=== PATIENT | female | born 1995 | race Caucasian/White ===

== ENCOUNTER 2016-07-03 15:34 | Emergency (ER) | payer OTHER ==
[2016-07-03 15:39] VITALS: BP 120/79; PULSE 89; RESP 20; TEMP 97.3; O2SAT 97
--- NOTE | 2016-07-03 16:20 | C.PDOC ---
History Of Present Illness 21-year-old female, presents to the emergency department with complaints of laceration to left middle finger. Patient states she sustained a laceration to the third digit of left hand while using lead blender at work, [employer]. Denies numbness/weakness. Time Seen by Provider: 07/03/16 15:42 Chief Complaint (Nursing): Abnormal Skin Integrity History Per: Patient History/Exam Limitations: no limitations Onset/Duration Of Symptoms: Mins Past Medical History Reviewed: Historical Data, Nursing Documentation, Vital Signs Vital Signs: Last Vital Signs Temp 97.3 F L 07/03/16 15:37 Pulse 89 07/03/16 15:37 Resp 20 07/03/16 16:36 BP 120/79 07/03/16 15:37 Pulse Ox 97 07/03/16 20:11 - Medical History PMH: No Chronic Diseases Family History: States: No Known Family Hx - Social History Hx Alcohol Use: No Hx Substance Use: No Review Of Systems Except As Marked, All Systems Reviewed And Found Negative. Respiratory: Negative for: Shortness of Breath Gastrointestinal: Negative for: Nausea, Vomiting Skin: Positive for: Other (LACERATION TO LEFT SECOND DIGIT OF UPPER EXTREMITY) Neurological: Negative for: Weakness, Numbness Physical Exam - Physical Exam Appears: Non-toxic, No Acute Distress Skin: Warm, Dry, No Rash Head: Atraumatic, Normacephalic Eye(s): bilateral: Normal Inspection Neck: Normal ROM Chest: Symmetrical Extremity: Normal ROM, Capillary Refill (<2 SECONDS), Other (1cm superficial laceration to the left 3rd fingertip, no active bleeding and proximal 1cm abrasion) Neurological/Psych: Oriented x3, Normal Speech ED Course And Treatment O2 Sat by Pulse Oximetry: 97 Laceration - Laceration Repair left 3rd digit Wound Length (In cm): 1 Description Of Wound: Linear, Clean Wound Cleansed With: Betadine, Sterile Saline Wound Examination: Irrigated With Saline, No FB With Wound Exploration, No Tendon Injury With Wound Exploration Wound Closure: Skin Glue (Dermabond) Wound Complexity: Simple Medical Decision Making Medical Decision Making: Wound irrigated and cleansed with betadyne and sterile saline. Patient was complaining of pain and extremely nervous. Tylenol and Tetanus was ordered. I discussed with patient the plan for suture repair, likely need two sutures, however the patient is refusing. She states she is afraid and does not want sutures. Plan is to apply topical skin adhesive Dermabond . Explain to patient to keep wound dry and not apply any ointment or products as it can dissolve the glue Disposition - Disposition Disposition: HOME/ ROUTINE Disposition Time: 16:20 Condition: GOOD Additional Instructions: Keep wound clean and dry Skin glue was used to close your wound, do not apply ointment to area as it may dissolve glue. Glue patch will gradually fall off in few days. Instructions: Skin Adhesive Care (ED) - POA Present On Arrival: None - Clinical Impression Clinical Impression: Finger laceration - Scribe Statement The provider has reviewed the documentation as recorded by the Scribjuan Gonzalez All medical record entries made by the Lashandaibe were at my direction and personally dictated by me. I have reviewed the chart and agree that the record accurately reflects my personal performance of the history, physical exam, medical decision making, and the department course for this patient. I have also personally directed, reviewed, and agree with the discharge instructions and disposition.
== END 2016-07-03 16:36 | disposition home or self-care (01) ==
LOC: C.ER 15:34
DX: S61.213A Laceration without foreign body of left middle finger without damage to nail, initial encounter (principal); W45.8XXA Other foreign body or object entering through skin, initial encounter; Y93.89 Activity, other specified; Y92.89 Other specified places as the place of occurrence of the external cause

== ENCOUNTER 2016-07-03 18:59 | Emergency (ER) | payer OTHER ==
[2016-07-03 19:19] VITALS: BP 129/85; PULSE 78; RESP 18; TEMP 98.3; O2SAT 99
--- NOTE | 2016-07-03 20:02 | C.PDOC ---
History Of Present Illness Patient is a 21 year old female who was seen and treated earlier today in the ER with a finger laceration. Patient states she arrived home and saw she was bleeding through the dressing, she now returns to the ER for a reevaluation. Denies any other complaints at this time. Time Seen by Provider: 07/03/16 19:38 Chief Complaint (Nursing): Abnormal Skin Integrity History Per: Patient History/Exam Limitations: no limitations Onset/Duration Of Symptoms: Hrs Current Symptoms Are (Timing): Still Present Location Of Injury: Left: Hand (finger laceration) Quality Of Symptoms: Other (Bleeding) Recent travel outside of the [place]: No Past Medical History Reviewed: Historical Data, Nursing Documentation, Vital Signs Vital Signs: Last Vital Signs Temp 98.3 F 07/03/16 19:16 Pulse 78 07/03/16 19:16 Resp 18 07/03/16 19:16 BP 129/85 07/03/16 19:16 Pulse Ox 99 07/03/16 22:53 - Medical History PMH: No Chronic Diseases Surgical History: No Surg Hx Family History: States: Unknown Family Hx - Social History Hx Alcohol Use: No Hx Substance Use: No Review Of Systems Constitutional: Negative for: Fever, Chills Musculoskeletal: Positive for: Hand Pain (Left, Finger laceration) Physical Exam - Physical Exam Appears: Well, Non-toxic Skin: Normal Color, Warm, Dry Head: Atraumatic, Normacephalic Eye(s): bilateral: Normal Inspection Neck: Normal ROM Extremity: Other (Left 3rd finger with no active bleeding, dermabond intact) Neurological/Psych: Oriented x3, Normal Speech ED Course And Treatment O2 Sat by Pulse Oximetry: 99 (Room air) Pulse Ox Interpretation: Normal Medical Decision Making Medical Decision Makin21 year old female with finger laceration complained of bleeding. No active bleeding in ED. Dressing applied. Disposition Counseled Patient/Family Regarding: Need For Followup - Disposition Referrals: Non [facility] Provider, [Primary Care Provider] - Disposition: HOME/ ROUTINE Disposition Time: 20:01 Condition: STABLE Instructions: Skin Adhesive Care (ED) Forms: Work Excuse - POA Present On Arrival: None - Clinical Impression Clinical Impression: Visit for wound check
== END 2016-07-03 20:12 | disposition home or self-care (01) ==
LOC: C.ER 18:59 → SUPCPDRO 18:59 → C.ER 20:12
DX: Z48.00 Encounter for change or removal of nonsurgical wound dressing (principal)

== ENCOUNTER 2017-06-29 23:55 | Inpatient (IN) | payer MEDICAID, OTHER ==
--- NOTE | 2017-06-30 03:47 | OBHP ---
Datetime: 06/30/2017 00:50 IP Adm Impression: Term, intrauterine ; No Active Labor; Intact Membranes IP Admit Plan: Observation/Evaluation Admit Comment, IP Provider: 22 y.o. , LMP 09/26/16, MEENU 07/03/17, EGA 39w 4d, confirmed by sonelvi cerda t 18 weeks, reports mild abdominal cramps onset 2130 hours 06/29, pain scale 4/10. Patient was in E.D . with her who has been admitted with acute appendicitis for appendectomy in the AM. (+) AFM ; denies LOF, VB. 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 Denies h/o STIs. abnormal Pap, ovarian cysts, fibroids PMH: denies PSH: denies NKDA Meds: PNV Soc Hx. denies tobacco, illicit drug or EtOH use. x 1 yr. Unemployed Fam Hx; Mother alive 46 y.o. - DM, HTN. Father alive 56 y.o. - no med issues. no known fam h/o can cer P.E.: as above. Mildly obese, in NAD. awake, alert, orineted to time, person and place. Pleasant a nd cooperative Assessment: 22 y.o. P0, 39w 4d, latent phase of labor. GBS (-). Category [address] able. Plan: 1) Ambulate x 2 hours (in E.D.) 2) Re-examine Addendum: 06/30/17 0338 hours Patient returns after ambulating: reports not feeling any contractions. (+) AFM. Cervical exam: New Point: every 5-6 minutes Assessment: 22 y.o. P0, 39w 5d, earlylabor. Category 1 tracing. GBS (-). Admit for delivery. Clini toyn stable. Plan: 1) Admit 2) NPO 3) Admission Labs 4) Continuous EFM 5) Pitocin 6) Anticipate vaginal delivery Pelvic Type - PN: Adequate Extremities - PN: Normal Abdomen - PN: Normal Back - PN: Normal Breast - PN: Normal Lungs - PN: Normal Heart - PN: Normal Thyroid - PN: Not Done Neurologic - PN: Normal HEENT - PN: Normal General - PN: Normal Presentation-Admit: Vertex FHR - Baseline A Provider: 140 Contraction Comments Provider: 5-6 Comments, ACOG Physical Exam: Abdomen: Gravid. Soft. Non tender All other systems reviewed and are negative Gestation - Est Wks by US: 39w 4d IP Hx Assessment: The History has been Reviewed and is Current EGA AdmitDate IP: 39.4 Vital Signs Provider: Reviewed IP Indication for Induction: Not Applicable IP Chief Complaint: Uterine contractions NICHD Variability Prov Fetus A: Moderate 6-25bpm NICHD Accel Fetus A IP Provider: 15X15 FHR Category Provider Fetus A: Category I NICHD Decel Fetus A IP Provider: None Dilatation, Provider: 3-4 Effacement, Provider: 40 Station, Provider: -3 Genitourinary Exam: Normal DTRs - PN: Normal
[2017-06-30] MEDS ORDERED: Oxytocin 30 UNIT 30 UNITS/500 ML BAG IV PRN (03:50)
[2017-06-30] MEDS: Lactated Ringer's 1,000 ML IV SCH ×2 (04:00→05:00)
[2017-06-30] MEDS ORDERED: Lactated Ringer's 1,000 ML IV SCH (04:00)
[2017-06-30 04:41] LABS: BASO % 0.4 % (0.0-2.0); EOS # 0.1 K/uL (0.0-0.7); EOS % 0.6 % (0.0-4.0); LYMPH # 2.1 K/uL (1.0-4.3); LYMPH % 17.7 % (20.0-40.0); MEAN CELL VOLUME 81.6 fL (81.0-99.0); MEAN CORPUSCULAR HEMOGLOBIN 28.3 pg (27.0-31.0); MEAN CORPUSCULAR HGB CONC 34.7 g/dL (33.0-37.0); MEAN PLATELET VOLUME 9.2 fL (7.2-11.7); MONO # 0.5 K/uL (0.0-0.8); MONO % 4.4 % (0.0-10.0); NEUT # 9.3 K/uL (1.8-7.0); NEUT % 76.9 % (50.0-75.0); NRBC % 0.1 % (0.0-2.0); RBC 4.6 Mil/uL (3.80-5.20); RED CELL DISTRIBUTION WIDTH 13.8 % (11.5-14.5); WHITE BLOOD COUNT 12.1 K/uL (4.8-10.8)
[2017-06-30 04:43] LABS: SQUAMOUS EPITHIAL 1 /hpf (0-5); URINE BACTERIA RARE (<OCC); URINE BILIRUBIN NEGATIVE (NEGATIVE); URINE CLARITY Clear (Clear); URINE COLOR Yellow (YELLOW); URINE GLUCOSE (UA) NORMAL (Normal); URINE LEUKOCYTE ESTERASE NEG Leu/uL (Negative); URINE PROTEIN NEGATIVE (NEGATIVE); URINE UROBILINOGEN NORMAL mg/dL (0.2-1.0)
[2017-06-30 04:51] LABS: URINE BLOOD TRACE (NEGATIVE)
[2017-06-30 05:08] LABS: ALB/GLOB RATIO 1.1 (1.0-2.1); ALBUMIN 3.9 g/dL (3.5-5.0); ALT/SGPT 23 U/L (9-52); AST/SGOT 33 U/L (14-36); BLOOD UREA NITROGEN 8 mg/dL (7-17); CALCIUM 9.2 mg/dl (8.6-10.4); GFR AFRICAN-AMERICAN > 60; GFR NON-AFRICAN AMERICAN > 60
[2017-06-30] MEDS ORDERED: Oxytocin 30 UNIT 30 UNITS/500 ML BAG IV ONE (05:15)
[2017-06-30] MEDS ORDERED: Fentanyl/Bupivacaine HCl 250 ML EPI ONE (10:47)
[2017-06-30] MEDS ORDERED: Bupivacaine HCl 0.25% PF (30 ml) Inj ONE (10:47)
[2017-06-30] MEDS ORDERED: cefOXitin IV 2 gm in Dextrose 2 GM/50 ML BAG IVPB ONE (12:42)
[2017-06-30] MEDS ORDERED: Sodium Citrate/Citric Acid 15 ml Sol PO ONE (12:43)
[2017-06-30] MEDS ORDERED: cefOXitin IV 2 gm in Saline 2 GM/50 ML BAG IVPB ONE (12:46)
[2017-06-30] MEDS ORDERED: Morphine 1 mg/ml preservative-free Inj(Duramorph) ONE (13:20)
[2017-06-30] MEDS ORDERED: Oxytocin 10 Units/ml Inj ONE (13:26)
--- NOTE | 2017-06-30 17:05 | OBDS ---
DELIVERY PERSONNEL Delivery Doctor: Lasha Escobar MD Scrub Nurse: Maia Kelley Diesel Truck Driver: Myrtle Pizano RN Anesthesiologist: beth MATERNAL INFORMATION Delivery Anesthesia: Epidural Medications in Delivery: pitocin 20 Estimated Blood Loss (ml): 900 Placenta Cultured: Yes Maternal Complications: None Provider Comments: baby jw in dop. 9/9 peds present LABOR SUMMARY EDC: 07/03/2017 00:00 No. Babies in Womb: 1 Attempted: No Labor Anesthesia: Epidural LABOR INFORMATION Onset of Labor: 06/29/2017 21:00 Oxytocin: Augmentation Group B Beta Strep: Negative Antibiotics # of Doses: 1 Antibiotics Time of Last Dose: 1249 MEMBRANES Membranes Rupture Method: Artificial Rupture of Membranes: 06/30/2017 12:42 Length of Rupture (hrs): 0.63 Amniotic Fluid Color: Heavy Meconium Amniotic Fluid Amount: Moderate Amniotic Fluid Odor: Normal STAGES OF LABOR Stage 3 hrs: 0 Stage 3 min: 3 Total Time in Labor hrs: 16 Total Time in Labor min: 23 VAGINAL DELIVERY Episiotomy: None Laceration Extension: N/A Laceration Type: None CSECTION DELIVERY Primary Indication: Secondary Arrest of Dilatation Secondary Indication: heavy meconum CSection Urgency: Emergency CSection Incidence: Primary Labor: Labor Elective: Nonelective CSection Incision: Lower Uterine Transverse BABY A INFORMATION Delivery Date/Time: 06/30/2017 13:20 Method of Delivery: Born in Route : No : N/A Forceps: N/A Vacuum Extraction: N/A Shoulder Dystocia : Yes SHOULDER DYSTOCIA BABY A Infant Delivery Date/Time: 06/30/2017 13:20 PRESENTATION/POSITION BABY A Presentation: Cephalic Cephalic Presentation: Vertex Vertex Position: Right Occipital Anterior Breech Presentation: N/A PLACENTA INFORMATION BABY A Placenta Delivery Time : 06/30/2017 13:23 Placenta Method of Delivery: Manual Removal Placenta Status: Delivered SCORES BABY A Heart Rate 1 min: >100 bpm Resp Effort 1 min: Good Cry Reflex Irritability 1 min: Cough or Sneeze or Pulls Away Muscle Tone 1 min: Active Motion Color 1 min: Body [place], Extremities Blue Resuscitation Effort 1 min: Tactile Stimulation SCORE 1 MIN: 9 Heart Rate 5 min: >100 bpm Resp Effort 5 min: Good Cry Reflex Irritability 5 min: Cough or Sneeze or Pulls Away Muscle Tone 5 min: Active Motion Color 5 min: Body [place], Extremities Blue SCORE 5 MIN: 9 INFANT INFORMATION BABY A Gestational Age at Delivery: 39.0 Gestational Status: Term Infant Outcome : Liveborn Condition : Stable Sex: Male IDENTIFICATION/MEDS BABY A ID Band Number: [id number] ID Band Location: Left Leg; Left Arm Sensor Applied: Yes Sensor Number: [id number] Sensor Location : Cord Clamp WEIGHT/LENGTH BABY A Infant Birthweight (gms): 3860 Infant Weight (lb): 8 Weight (oz): 8 Infant Length Inches: 20.00 Infant Length cms: 50.8 CORD INFORMATION BABY A No. Cord Vessels: 3 Nuchal Cord : N/A Cord Blood Taken: Yes Infant Suction: Mouth; Nose ASSESSMENT BABY A Infant Complications: None Physical Findings at Delivery: Within Normal Limits Respirations: Appears Normal Media Intern/ALS Called : No Infant Care By: DR IBARRA Transferred To: Remains with Mother
[2017-06-30] MEDS: Simethicone 80 mg Chewtab PO SCH (22:41)
[2017-07-01 08:30] LABS: MEAN CELL VOLUME 82.8 fL (81.0-99.0); MEAN CORPUSCULAR HEMOGLOBIN 28.3 pg (27.0-31.0); MEAN CORPUSCULAR HGB CONC 34.2 g/dL (33.0-37.0); MEAN PLATELET VOLUME 9.4 fL (7.2-11.7); RBC 3.67 Mil/uL (3.80-5.20); RED CELL DISTRIBUTION WIDTH 13.8 % (11.5-14.5); WHITE BLOOD COUNT 13.4 K/uL (4.8-10.8)
[2017-07-01 08:33] LABS: HEMOGLOBIN 10.4 g/dL (11.0-16.0)
[2017-07-01] MEDS: Simethicone 80 mg Chewtab PO SCH ×3 (09:40→17:56)
[2017-07-01] MEDS: Oxycodone/Acetaminophen 5/325 mg Tab PO PRN ×2 (12:43→18:34)
[2017-07-01] MEDS ORDERED: Bisacodyl 5mg EC Tab PO ONE (12:44)
--- NOTE | 2017-07-01 22:00 | OBPPN ---
Datetime: 07/01/2017 21:56 PP Nausea Prov: Denies PP Flatus Prov: Yes PP BM Prov: Yes PP Breasts Prov: Normal PP Heart Prov: Normal PP Lungs Prov: Normal PP Abdomen/Uterus Prov: Normal PP Lochia Prov: Normal PP Vulva/Perineum Prov: Normal PP CVA Tenderness Prov: Normal PP Extremities Prov: Normal PP C/S Incision Prov: Normal PP Progress Prov: Normal PP Impression Prov: Normal progression PP Plan Prov: Continue present management PP Progress Note Prov: PPD#1 1) Vitals stable 2) encouraged ambulation 3) Routine PP care. IP PP Procedures: None Vital Signs Provider PP: Reviewed
[2017-07-02] MEDS: Oxycodone/Acetaminophen 5/325 mg Tab PO PRN ×4 (06:19→21:41)
[2017-07-02] MEDS: Simethicone 80 mg Chewtab PO SCH ×4 (10:15→21:43)
--- NOTE | 2017-07-02 12:52 | OBPPN ---
Datetime: 07/02/2017 12:38 PP Pain Prov: Within normal limits PP Nausea Prov: Denies PP Flatus Prov: Yes PP BM Prov: No PP Breasts Prov: Normal PP Heart Prov: Normal PP Lungs Prov: Normal PP Abdomen/Uterus Prov: Normal PP Lochia Prov: Normal PP Vulva/Perineum Prov: Normal PP CVA Tenderness Prov: Normal PP Extremities Prov: Normal PP Comments Phys Exam Prov: ABD; Soft, NT, Incision clean and clear, Kay Intact. Uterus firm EXT: No calf tenderness PP Impression Prov: Normal progression PP Plan Prov: Continue present management PP Progress Note Prov: POD #2 pt doing well. No complaints today F/U CBC for today- Already ordered Plan for DC tomorrow. IP PP Procedures: None Vital Signs Provider PP: Reviewed; Within Normal Limits
[2017-07-02 14:09] LABS: BASO % 0.3 % (0.0-2.0); EOS # 0.2 K/uL (0.0-0.7); EOS % 1.9 % (0.0-4.0); HEMOGLOBIN 9.8 g/dL (11.0-16.0); LYMPH # 1.7 K/uL (1.0-4.3); LYMPH % 16.6 % (20.0-40.0); MEAN CELL VOLUME 83.1 fL (81.0-99.0); MEAN CORPUSCULAR HEMOGLOBIN 28.6 pg (27.0-31.0); MEAN CORPUSCULAR HGB CONC 34.5 g/dL (33.0-37.0); MEAN PLATELET VOLUME 8.8 fL (7.2-11.7); MONO # 0.5 K/uL (0.0-0.8); MONO % 5.1 % (0.0-10.0); NEUT # 7.6 K/uL (1.8-7.0); NEUT % 76.1 % (50.0-75.0); RBC 3.42 Mil/uL (3.80-5.20); RED CELL DISTRIBUTION WIDTH 13.8 % (11.5-14.5)
[2017-07-03] MEDS: Oxycodone/Acetaminophen 5/325 mg Tab PO PRN ×2 (02:24→08:37)
--- NOTE | 2017-07-03 07:59 | OBPPN ---
Datetime: 07/03/2017 07:54 PP Pain Prov: Within normal limits PP Nausea Prov: Denies PP Flatus Prov: Yes PP BM Prov: No PP Breasts Prov: Normal PP Heart Prov: Normal PP Lungs Prov: Normal PP Abdomen/Uterus Prov: Normal PP Lochia Prov: Normal PP Vulva/Perineum Prov: Normal PP CVA Tenderness Prov: Normal PP Extremities Prov: Normal PP C/S Incision Prov: Normal PP Progress Prov: Normal PP Impression Prov: Normal progression PP Plan Prov: Continue present management PP Progress Note Prov: Pt seen and examien francis tamez pain controleld with medicain. pt ambulting, voiidng, passing flatus, tolerated diet, breast feeding, dneis any fever, chills, nasue, vomiting, a nd dneis any sadness or depression. VSS PE GEN NAD, AAO x 3 BREAST: NT, NOn engorged b/l RESP: CTAB/l CVS: RRR, +S1/S2 ABD: soft, NT, ND, +BS, no guarding, no rebound tenderness, no rigidity INCSION C/D/I healing well mayra intact FUNDUS: firm, below level of umbilcus VE: Minimal lochai, non foul smelling EXT: negative homans' sign A/P s/p PLTCS POD #3 doing well dc home RTO 1 week for staple removal precatuions given Vital Signs Provider PP: Reviewed; Within Normal Limits
--- NOTE | 2017-07-03 08:00 | OBDCSUM ---
Datetime: 07/03/2017 07:58 Discharged to, Provider: Home Follow up at, Provider: Clinic Disch Instr Activity: Normal activity Disch Instr Diet: Regular Discharge Instructions, Provider: Routine instructions given Discharge Diagnosis, Provider: Term Delivered Discharge Time: 07/03/2017 07:58 Follow up in weeks, Provider: 5-7 days for stapel removal Disch Referrals: None Contraception discussed, Prov: Yes Disch Activity Restrictions: No sexual activity; Nothing in vagina - [place], tampons, douche Discharge Comment, Provider: if fever, chest pain, heavy bleedign more than 2 pads, go to er and miguel angel l your doctor Contraception after Delivery: Not Planning to Use
[2017-07-03 08:14] VITALS: BP 101/59; RESP 18
[2017-07-03] MEDS: Simethicone 80 mg Chewtab PO SCH (09:21)
[2017-07-03 15:40] VITALS: PULSE 99; TEMP 99.4; O2SAT 98
== END 2017-07-03 11:39 | disposition home or self-care (01) | DRG 371 ==
LOC: C.EROB 23:55 → C.4D 06-30 03:45 → C.4M 06-30 16:55
PROVIDERS: ADMIT Obstetrics & Gynecology; ATTEND Obstetrics & Gynecology
PROC: 10D00Z1 Extraction of Products of Conception, Low, Open Approach (ICD-10-PCS; principal; 2017-06-30)
DX: O62.1 Secondary uterine inertia (principal); O77.0 Labor and delivery complicated by meconium in amniotic fluid; O66.0 Obstructed labor due to shoulder dystocia; O99.214 Obesity complicating childbirth; Z3A.39 39 weeks gestation of pregnancy; Z37.0 Single live birth

== ENCOUNTER 2017-09-17 16:44 | Emergency (ER) | payer OTHER ==
--- NOTE | 2017-09-17 17:33 | C.PDOC ---
History Of Present Illness 22 y/o female presents to ED for evaluation of intermittent epigastric abdominal pain for the last 5 days. Pain is not exacerbated by food. Denies n/v/ d, urinary symptoms, chest pain, or SOB. Time Seen by Provider: 09/17/17 17:04 Chief Complaint (Nursing): Abdominal Pain History Per: Patient History/Exam Limitations: no limitations Past Medical History Reviewed: Historical Data, Nursing Documentation, Vital Signs Vital Signs: Last Vital Signs Temp 98.4 F 09/17/17 19:03 Pulse 75 09/17/17 19:03 Resp 18 09/17/17 19:03 BP 101/49 L 09/17/17 19:03 Pulse Ox 99 09/17/17 19:03 - Medical History PMH: Denies: Depression, Diabetes, HTN - [facility] EXTRACTION OF POC, LOW CERVICAL, OPEN APPROACH (06/30/17) Family History: States: Unknown Family Hx - Social History Hx Alcohol Use: No Hx Substance Use: No Review Of Systems Except As Marked, All Systems Reviewed And Found Negative. Constitutional: Negative for: Fever, Chills Gastrointestinal: Positive for: Abdominal Pain. Negative for: Nausea, Vomiting , Diarrhea, Constipation Genitourinary: Negative for: Dysuria, Frequency, Hematuria, Vaginal Discharge Musculoskeletal: Negative for: Back Pain Physical Exam - Physical Exam Appears: Non-toxic, No Acute Distress Skin: Normal Color, Warm, Dry Head: Atraumatic, Normacephalic Eye(s): bilateral: Normal Inspection Oral Mucosa: Moist Neck: Supple Cardiovascular: Rhythm Regular Respiratory: Normal Breath Sounds, No Rales, No Rhonchi, No Wheezing Gastrointestinal/Abdominal: Soft, Tenderness (epigastric), No Guarding, No Rebound Back: No CVA Tenderness Extremity: Normal ROM Neurological/Psych: Oriented x3, Normal Speech ED Course And Treatment - Laboratory Results Result Diagrams: 09/17/17 17:53 09/17/17 17:53 O2 Sat by Pulse Oximetry: 98 Medical Decision Making Medical Decision Making: Blood work, UA, obstructive series ordered and reviewed. Pt was given Toradol, Protonix. 183 - patient states resolution of symptoms. Will discharge home and advise follow up with pmd within 2 days. obstr. series prelim. read as nsgp. Disposition Counseled Patient/Family Regarding: Studies Performed, Diagnosis - Disposition Referrals: Mu Lockwood [Staff Provider] - Disposition: HOME/ ROUTINE Disposition Time: 18:31 Condition: IMPROVED Additional Instructions: follow up with your doctor within 2 days call to make an appointment take medications as prescribed return to ER if symptoms worsens or progress Prescriptions: Famotidine [Pepcid] 20 mg PO BID #20 tab Instructions: Acid Reflux (Gastroesophageal Reflux Disease), Adult (DC), Acute Abdomen (Belly Pain), Adult (DC) Forms: [facility] (Tajik), General Discharge Instructions - Clinical Impression Clinical Impression: Abdominal pain, Dyspepsia - Scribe Statement The provider has reviewed the documentation as recorded by the Scribe KP All medical record entries made by the Scribe were at my direction and personally dictated by me. I have reviewed the chart and agree that the record accurately reflects my personal performance of the history, physical exam, medical decision making, and the department course for this patient. I have also personally directed, reviewed, and agree with the discharge instructions and disposition.
[2017-09-17 17:58] LABS: BASO % 0.5 % (0.0-2.0); EOS # 0.2 K/uL (0.0-0.7); EOS % 2.5 % (0.0-4.0); HEMOGLOBIN 12.9 g/dL (11.0-16.0); LYMPH # 1.7 K/uL (1.0-4.3); LYMPH % 23.3 % (20.0-40.0); MEAN CELL VOLUME 78.9 fL (81.0-99.0); MEAN CORPUSCULAR HEMOGLOBIN 26.7 pg (27.0-31.0); MEAN CORPUSCULAR HGB CONC 33.8 g/dL (33.0-37.0); MEAN PLATELET VOLUME 8.7 fL (7.2-11.7); MONO # 0.4 K/uL (0.0-0.8); MONO % 5.5 % (0.0-10.0); NEUT % 68.2 % (50.0-75.0); NRBC % 0.1 % (0.0-2.0); RBC 4.83 Mil/uL (3.80-5.20); RED CELL DISTRIBUTION WIDTH 13.4 % (11.5-14.5); WHITE BLOOD COUNT 7.3 K/uL (4.8-10.8)
[2017-09-17 18:05] LABS: SQUAMOUS EPITHIAL 8 /hpf (0-5); URINE BACTERIA RARE (<OCC); URINE BILIRUBIN NEGATIVE (NEGATIVE); URINE CLARITY Hazy (Clear); URINE COLOR Yellow (YELLOW); URINE GLUCOSE (UA) NORMAL (Normal); URINE LEUKOCYTE ESTERASE TRACE Leu/uL (Negative); URINE PROTEIN NEGATIVE (NEGATIVE); URINE UROBILINOGEN NORMAL mg/dL (0.2-1.0)
[2017-09-17 18:06] LABS: URINE BLOOD 1+ (NEGATIVE)
[2017-09-17 18:15] LABS: ALB/GLOB RATIO 1.5 (1.0-2.1); ALBUMIN 4.6 g/dL (3.5-5.0); ALT/SGPT 37 U/L (9-52); AST/SGOT 25 U/L (14-36); BLOOD UREA NITROGEN 14 mg/dL (7-17); CALCIUM 9.5 mg/dl (8.6-10.4); GFR AFRICAN-AMERICAN > 60; GFR NON-AFRICAN AMERICAN > 60; LIPASE 148 U/L (23-300)
--- NOTE | 2017-09-17 18:37 | RAD ---
Date of service: 09/17/2017 PROCEDURE: Radiographs of the chest and abdomen (obstructive series) HISTORY: abd pain COMPARISON: No prior. TECHNIQUE: AP radiograph of the chest, with upright and supine radiographs of the abdomen. FINDINGS: CHEST: Lungs: Clear. Cardiovascular: Normal size heart. No pulmonary vascular congestion. Pleura: No pleural fluid. No pneumothorax. Other findings: None. ABDOMEN AND PELVIS: Bowel: No bowel obstruction. Mild retained feces. Free air: None. Bones: Unremarkable. Other findings: IUD noted in pelvis. IMPRESSION: No evidence of mechanical bowel obstruction.
[2017-09-17 19:04] VITALS: BP 101/49; PULSE 75; RESP 18; TEMP 98.4
[2017-09-18 07:23] VITALS: O2SAT 98
== END 2017-09-17 19:04 | disposition home or self-care (01) ==
LOC: C.ER 16:44
DX: R10.13 Epigastric pain (principal)
CPT/HCPCS: 74022; 80053; 81001; 83690; 85025; 96374; 96375; 99284; C9113; J1885